=== PATIENT | male | born 1990 | race African-American/Black ===

== ENCOUNTER 2018-06-04 15:48 | Emergency (ER) | payer OTHER ==
[~2018-06-04] VITALS: Ht 180.3 cm; Wt 72.6 kg
[2018-06-04 17:30] VITALS: BP 140/81
== END 2018-06-04 17:31 | disposition home or self-care (01) ==
LOC: ER 15:48
DX: S61.011A Laceration without foreign body of right thumb without damage to nail, initial encounter (principal); W26.8XXA Contact with other sharp object(s), not elsewhere classified, initial encounter; Y93.89 Activity, other specified; Y92.89 Other specified places as the place of occurrence of the external cause; Y99.8 Other external cause status